=== PATIENT | male | born 1950 | race Caucasian/White ===

== ENCOUNTER 2016-08-15 22:47 | Emergency (ER) | payer OTHER ==
[~2016-08-15] VITALS: Ht 162.6 cm; Wt 65.8 kg
--- NOTE | 2016-08-15 23:16 | ED GENERAL ADULT ---
History of Present Illness General Chief Complaint: Animal/Insect Bite Stated Complaint: PT WAS BITE BY A TICK Source: patient, family Exam Limitations: no limitations Vital Signs & Intake/Output Vital Signs & Intake/Output Vital Signs Date Time Temp Pulse Resp B/P B/P Pulse O2 O2 Flow FiO2 Mean Ox Delivery Rate 08/16 0044 99.1 78 18 128/70 97 Room Air 08/15 2252 99.1 80 18 124/69 96 Room Air ED Intake and Output 08/16 0000 08/15 1200 Intake Total Output Total Balance Patient 145 lb Weight Weight Reported by Patient Measurement Method Allergies Coded Allergies: No Known Allergies (08/15/16) Reconcile Medications Doxycycline Hyclate 100 MG TABLET 1 TAB PO BID lyme disease Triage Note: PT TO TRIAGE FOR C/O CHILLS, BODYACHES, HEADACHES, NO APPETITE. PT RELATES HIS SYMPTOMS TO TICK BITE 2DAYS AGO. NO BITE BELEM OR REDNESS NOTED TO BITE SITE. TEMP 99.1 IN TRIAGE. VSS. Triage Nurses Notes Reviewed? yes Onset: Gradual Duration: day(s): Timing: recent history Injury Environment: home Severity: moderate Modifying Factors: Improves With: rest. Associated Symptoms: BODY ACHES, FEVER HPI: 66 yo gentleman h/o mi, carotid endarterectomy presents with body aches, fever, joint pain. 3 days ago, he picked a large tick off of his right flank. He did not notice any rash of any sort. His daughter notes that her mother had very similar symptoms and was diagnosed with lyme disease. Past History Travel History Traveled to [place] past 21 day No Medical History Any Pertinent Medical History? see below for history Cardiovascular: hypertension, hyperlipidemia, myocardial infarction Surgical History Surgical History: none Psychosocial History What is your primary language Tajik Tobacco Use: Current Not Daily Family History Hx Contributory? No Review of Systems Review of Systems Constitutional: Reports: no symptoms. EENTM: Reports: no symptoms. Respiratory: Reports: no symptoms. Cardiovascular: Reports: no symptoms. GI: Reports: no symptoms. Genitourinary: Reports: no symptoms. Musculoskeletal: Reports: no symptoms. Skin: Reports: no symptoms. Neurological/Psychological: Reports: no symptoms. Hematologic/Endocrine: Reports: no symptoms. Immunologic/Allergic: Reports: no symptoms. All Other Systems: Reviewed and Negative Physical Exam Physical Exam General Appearance: well developed/nourished, no apparent distress Head: atraumatic, normal appearance Eyes: Bilateral: normal appearance. Ears, Nose, Throat: normal pharynx, normal ENT inspection Neck: normal inspection, supple, full range of motion Respiratory: normal breath sounds, chest non-tender, no respiratory distress, quiet respiration, lungs clear Cardiovascular: regular rate/rhythm Gastrointestinal: normal bowel sounds, soft, non-tender, no organomegaly Back: normal inspection, normal range of motion Extremities: normal inspection, normal capillary refill, normal range of motion, no edema Neurologic/Psych: no motor/sensory deficits, awake, alert, oriented x 3 Skin: intact, normal color, warm/dry Core Measures ACS in differential dx? No CVA/TIA Diagnosis: No Severe Sepsis Present: No Septic Shock Present: No Progress Differential Diagnoses I considered the following diagnoses in my evaluation of the patient: lyme disease vs other tick borne illness vs viral syndrome vs other. Plan of Care: Orders Procedure Date/time Status TROPONIN LEVEL 08/16 2315 Complete LYME TITRE 08/16 2315 Active COMPREHENSIVE METABOLIC PANEL 08/16 2315 Complete CBC WITHOUT DIFFERENTIAL 08/16 2315 Complete EKG 08/16 2315 Active Laboratory Tests 08/15/165: Anion Gap 10, Estimated GFR 51 L, BUN/Creatinine Ratio 17.1, Glucose 99, Calcium 7.7 L, Total Bilirubin 0.9, AST 58, ALT 68, Alkaline Phosphatase 60, Troponin I < 0.01, Total Protein 6.7, Albumin 4.0, Globulin 2.7, Albumin/ Globulin Ratio 1.5, CBC w Diff NO MAN DIFF REQ, RBC 4.74, MCV 91.5, MCH 32.3 H, RDW 12.5, MPV 8.1, Gran % 86.1 H, Lymphocytes % 7.0 L, Monocytes % 6.7, Eosinophils % 0, Basophils % 0.2, Absolute Granulocytes 6.8 H, Absolute Lymphocytes 0.6 L, Absolute Monocytes 0.5, Absolute Eosinophils 0, Absolute Basophils 0, PUBS MCHC 35.3, Lyme Disease Antibody Pending Initial ED EKG: normal axis, normal intervals, normal p-waves, normal QRS complex, normal sinus rhythm Departure Departure Disposition: HOME OR SELF CARE Condition: Stable Clinical Impression Primary Impression: Myalgia Secondary Impressions: Dehydration Referrals: ASTER BRIGHT,DM Bowie (PCP/Family) Departure Forms: Customer Survey General Discharge Information Prescriptions: Current Visit Scripts Doxycycline Hyclate 1 TAB PO BID #[id number] TAB Comments Patient have benign labs. Lyme titer is pending. After much discussion with the family, they feel compelled to start treatment for Lyme disease given the symptomatology. They will follow-up with me in 2 days for the Lyme titer results. The elevated creatinine of 1.4 was noted. I discussed with them at great length. He is feeling well and would prefer to go home. He does not wish to stay for IV fluids. He will follow-up with his primary care doctor or return to see me in 2 days. I encouraged taking oral fluids. Critical Care Note Critical Care Note Critical Care Time: non-applicable
[2016-08-15] MEDS ORDERED: DOXYCYCLINE HY100 M4 PO (23:20)
[2016-08-15 23:31] LABS: ABSOLUTE BASOPHIL COUNT 0 /CUMM (0.0-0.2); ABSOLUTE EOSINOPHIL COUNT 0 /CUMM (0.0-0.7); ABSOLUTE GRANULOCYTE CT 6.8 /CUMM (1.4-6.5); ABSOLUTE LYMPH COUNT 0.6 /CUMM (1.2-3.4); ABSOLUTE MONOCYTE COUNT 0.5 /CUMM (0.10-0.60); BASOPHIL % 0.2 % (0.0-2.0); EOSINOPHIL % 0 % (0-5); GRANULOCYTE % 86.1 % (42.2-75.2); HEMATOCRIT 43.3 % (42-52); MEAN CORPUSCULAR HGB 32.3 PG (27.0-31.0); MEAN CORPUSCULAR HGB CONC 35.3 G/DL (33.0-37.0); MEAN CORPUSCULAR VOLUME 91.5 FL (80.0-94.0); MEAN PLATELET VOLUME 8.1 FL (7.4-10.4); PLATELET COUNT 133 /CUMM (130-400); RBC DISTRIBUTION WIDTH 12.5 % (11.5-14.5); RED BLOOD CELL CT 4.74 /CUMM (4.70-6.10); WHITE BLOOD CELL COUNT 7.9 /CUMM (4.8-10.8)
--- NOTE | 2016-08-15 23:50 | RADIOLOGY REPORT ---
EXAMINATION: XR PORTABLE CHEST CLINICAL INFORMATION: Fever COMPARISON: 11/04/2006 TECHNIQUE: Portable frontal view of the chest was obtained. FINDINGS: The lungs are well expanded. Bronchial wall thickening noted. No dense consolidation, edema, or effusion. No pneumothorax. The cardiomediastinal silhouette is within normal limits. No acute osseous abnormality. IMPRESSION: No dense consolidation. Bronchial wall thickening can be seen with a small airways process such as asthma or atypical/viral infection.
[2016-08-16 00:44] VITALS: BP 128/70
== END 2016-08-16 00:47 ==
LOC: ERH 22:47
PROVIDERS: Pediatrics
DX: E86.0 Dehydration (principal); M79.1 Myalgia
CPT/HCPCS: 86618; 93005; 93010